=== PATIENT | female | born 1965 | race Two or more races ===

== ENCOUNTER 2021-09-01 19:57 | Emergency (ER) | payer OTHER ==
[~2021-09-01] VITALS: Ht 165.1 cm; Wt 96.2 kg
[2021-09-01] MEDS ORDERED: TOPROL XL25 M1 PO (20:01)
[2021-09-01] MEDS ORDERED: SYNTHROID150 MCG PO (20:01)
== END 2021-09-01 23:55 | disposition home or self-care (01) ==
LOC: ER 19:57
DX: S92.352A Displaced fracture of fifth metatarsal bone, left foot, initial encounter for closed fracture (principal); W18.30XA Fall on same level, unspecified, initial encounter; Y92.89 Other specified places as the place of occurrence of the external cause; Z88.6 Allergy status to analgesic agent; Z91.013 Allergy to seafood